=== PATIENT | female | born 1990 | race Hispanic/Latino ===

== ENCOUNTER 2019-02-13 08:53 | Day surgery (SDC) | payer BC ==
[2019-02-13 09:45] VITALS: BMI 23.9
[2019-02-13 10:15] LABS: BASO # 0.1 K/uL (0.0-0.2); BASO % 0.8 % (0.0-2.0); EOS # 0.3 K/uL (0.0-0.7); EOS % 3.9 % (0.0-4.0); HEMOGLOBIN 12.1 g/dL (12.0-16.0); LYMPH % 29.4 % (20.0-40.0); MEAN CORPUSCULAR HEMOGLOBIN 31.6 pg (27.0-31.0); MEAN CORPUSCULAR HGB CONC 33.9 g/dL (33.0-37.0); MEAN PLATELET VOLUME 8.8 fl (7.2-11.7); MONO # 0.5 K/uL (0.0-0.8); MONO % 7.2 % (0.0-10.0); NEUT # 3.9 K/uL (1.8-7.0); NEUT % 58.7 % (50.0-75.0); NRBC % 0.1 % (0.0-0.0); RBC 3.84 Mil/uL (3.80-5.20); RED CELL DISTRIBUTION WIDTH 13.7 % (11.5-14.5); WHITE BLOOD COUNT 6.7 K/uL (4.8-10.8)
[2019-02-13] MEDS ORDERED: Lactated Ringer's 1,000 ML IV ONE (10:19)
[2019-02-13] MEDS ORDERED: Oxytocin 10 Units/ml Inj ONE (11:20)
[2019-02-13] MEDS ORDERED: Propofol 10 mg/ml Inj (20 ML) ONE (11:29)
[2019-02-13] MEDS ORDERED: Midazolam 2 MG/2 ML VIAL ONE (11:30)
[2019-02-13] MEDS ORDERED: Dexamethasone 4 mg/1 ml ONE (11:40)
[2019-02-13] MEDS ORDERED: HYDROmorphone 0.5 mg/0.5 ml ISec IVP PRN (12:10)
[2019-02-13 13:33] VITALS: TEMP 98.9
[2019-02-13 14:14] VITALS: BP 106/64; PULSE 90; RESP 17; O2SAT 99
--- NOTE | 2019-02-14 08:35 | OP ---
PROCEDURE DATE: 02/13/2019 SURGEON: Damian Rai MD ANESTHESIOLOGIST: Selina Vera MD TYPE OF ANESTHESIA: General LMA PREOPERATIVE DIAGNOSES: Missed AB POSTOPERATIVE DIAGNOSES: Missed AB PROCEDURES PERFORMED: 1. Exam under anesthesia. 2. Suction D and C, Ultrasound Guided COMPLICATIONS: None. SAMPLES SENT: POC INDICATION FOR THE PROCEDURE: The patient had a loss at ___weeks. After one week of expectant management the still did not miscarry CONSENT: The patient had been thoroughly evaluated and counseled regarding pros and cons of the procedure, the reasonable alternative, and the possible complications. She understood and accepted the risks involved. She accepted all the risks involved and all the questions had been answered to her satisfaction. FINDINGS OF SURGERY: week size uterus . utrasound reveals fetus at ____ weeks no fhr on dopplers DESCRIPTION OF THE PROCEDURE: Initiation of the case: After adequate anesthesia was obtained, the patient was placed in the dorsal lithotomy position. She was prepped and draped. The surgeon was gowned and gloved. At this point, after taking time-out according to the hospital policy and exam under anesthesia was performed. The uterus appeared to be six to ____weeks in size. After emptying the bladder, the anterior lip of the cervix was grasped. The cervix was dilated and a # 9 curette was inserted into the uterine cavity. Suction was performed under ultrasound guidance. The products of conception were evacuated. There was no bleeding, The products of conception was sent for genetic testing in regular pathology. At this point, it was checked hemostasis appeared to be excellent. The patient was then awoken up and was taken to recovery room in excellent condition. Damian Rai MD [facility]
== END 2019-02-13 14:18 | disposition home or self-care (01) ==
LOC: H.OPSURG 08:53
PROVIDERS: ATTEND Obstetrics & Gynecology Reproductive Endocrinology
DX: O02.1 Missed abortion (principal); Z3A.01 Less than 8 weeks gestation of pregnancy
CPT/HCPCS: 36415; 59820; 85025; 86850; 86900; 88305; J1100; J2001; J2250; J2405; J2704; J2765; J3010; J7030; J7120